=== PATIENT | female | born 1955 | race Caucasian/White ===

== ENCOUNTER 2016-11-04 10:10 | Outpatient (CLI) | payer OTHER ==
--- NOTE | 2016-11-04 12:08 | DIAGNOSTIC IMAGING REPORT ---
PROCEDURE: MG BILATERAL SCREENING W/CAD INDICATION: Screening. Family history breast carcinoma (aunts). TECHNIQUE: Bilateral CC and MLO digital views. COMPARISON: Comparison is made to prior studies (11/20/2014, 06/19/2014, 10/21/2013, 09/22/2013, and 04/30/2012. FINDINGS: Computer-aided detection applied. Moderately dense and mildly nodular. Regional microcalcifications in the left central breast are unchanged consistent with benign sclerosing adenosis. No change. IMPRESSION: 1. Negative mammogram. RESULT CODE: 1- Negative. A. A negative report should not delay biopsy if a dominant or clinically suspicious mass is present. 10-15% of cancers are not identified by x-ray. B. A negative report may reinforce clinical impression. C. Adenosis and dense breasts may obscure an underlying neoplasm. D. False positive reports average 6-10%. E.. A yearly screening mammogram is recommended. A reminder letter will be scheduled.
== END 2016-11-04 23:00 ==
LOC: MAM SRH 10:10
DX: Z12.31 Encounter for screening mammogram for malignant neoplasm of breast (principal); Z80.3 Family history of malignant neoplasm of breast